=== PATIENT | female | born 1975 | race African-American/Black ===

== ENCOUNTER 2017-06-08 11:09 | Emergency (ER) | payer OTHER ==
[~2017-06-08] VITALS: Ht 165.1 cm; Wt 111.1 kg
[2017-06-08 11:10] VITALS: BP 120/101
[2017-06-08] MEDS ORDERED: Morphine Sulfate 4mg/ml Inj IVP ONE (11:45)
[2017-06-08] MEDS ORDERED: Ketorolac 30mg Inj IV ONE (11:45)
[2017-06-08 12:00] VITALS: BP 118/78
[2017-06-08 12:04] LABS: BASOPHILS % (AUTO) 1.4 % (0.0-2.0); EOSINOPHILS % (AUTO) 1.6 % (0.0-3.0); LYMPHOCYTES % (AUTO) 37.1 % (20.0-45.0); MEAN CORPUSCULAR HEMOGLOBIN 31.3 PG (27.0-31.0); MEAN CORPUSCULAR HGB CONC 33.3 G/DL (32.0-36.0); MEAN CORPUSCULAR VOLUME 94 FL (80-99); MEAN PLATELET VOLUME 7.6 FL (6.5-10.1); NEUTROPHILS % (AUTO) 48.9 % (45.0-75.0); PLATELET COUNT 195 K/UL (150-450); RED BLOOD COUNT 4.19 M/UL (4.20-5.40); RED CELL DISTRIBUTION WIDTH 11.8 % (11.6-14.8); WHITE BLOOD COUNT 5.4 K/UL (4.8-10.8)
[2017-06-08 12:11] LABS: PROTHROMBIN TIME 10.3 SEC (9.30-11.50)
[2017-06-08 12:14] LABS: ALANINE AMINOTRANSFERASE 16 U/L (12-78); ALBUMIN/GLOBULIN RATIO 1.3 (1.0-2.7); ANION GAP 6 mmol/L (5-15); ASPARTATE AMINO TRANSFERASE 12 U/L (15-37); CALCIUM 9.1 MG/DL (8.5-10.1); CARBON DIOXIDE 27 MMOL/L (21-32); CHLORIDE 106 MMOL/L (98-107); CREATININE 0.8 MG/DL (0.55-1.30); GLOMERULAR FILTRATION RATE > 60 mL/min (>60); SODIUM 139 MMOL/L (136-145); TOTAL PROTEIN 7.2 G/DL (6.4-8.2)
[2017-06-08] MEDS ORDERED: oxyCODONE HCL/Acetaminophen 5/325mg ORAL ONE (12:45)
[2017-06-08 13:00] VITALS: BP 122/67
[2017-06-08] MEDS ORDERED: Norco 5mg/325mg tab ORAL ONE (13:45)
[2017-06-08 14:00] VITALS: BP 116/72
--- NOTE | 2017-06-08 14:49 | Diagnostic Imaging Report ---
Indication: PAIN heavy vaginal bleeding with large blood clots Technique: Transabdominal and transvaginal images Comparison: None Findings: Uterus measures 13.3 cm length by 6.7 cm AP. The endometrium measures 10 mm thick. A few bright echoes are seen within the endometrium, but no suspicious findings. No intrauterine is demonstrated. 2 small hypoechoic presumed fibroids are demonstrated within the myometrium, largest measuring 13 mm. The right ovary measures 6.7 cm in length, demonstrates a 5.6 cm diameter cyst. Left ovary measures 3.5 cm in length. No adnexal mass otherwise. No free cul-de-sac fluid Impression: No intrauterine demonstrated. Per discussion with referring physician, this most likely represents spontaneous . Ectopic or very early not completely excludable, however, and correlation with serial beta-hCG is recommended, with followup sonography is indicated 5.6 cm right ovarian cyst, likely a corpus luteum cyst. Recommend followup sonography in 6-8 weeks to assure stability or resolution Nonspecific bright echoes within the endometrium No evidence of retained products of conception Small uterine fibroids
[2017-06-08 15:00] VITALS: BP 124/82
--- NOTE | 2017-06-08 15:42 | Emergency Room Report ---
History of Present Illness General Chief Complaint: Vaginal Source: Patient Present Illness HPI This patient presents with heavy vaginal bleeding and pelvic cramping. The patient states that 3 weeks ago she missed her menstrual period. She states she took a home past and the first one was positive. She took one again and it was negative. She assumed that she was entering menopause. She states that 5 days ago she started passing some discharge that looked like "tissue." She states that over the past 4 days she has had a normal period and tell last night when she developed severe cramping and bleeding. She states that this morning she had severe pain and then passed a piece of tissue that looked like around the ball that was larger than a golf ball. She states that she also has had heavy bleeding and suprapubic cramping. She denies fever or chills. She denies nausea or vomiting. She denies chest pain or shortness of breath. She has no other complaints. The patient is EAB 2. Allergies: Coded Allergies: No Known Allergies (Unverified , 06/08/17) Patient History Social History: Denies: smoking, alcohol use, drug use Last Menstrual Period: March/2017 Reviewed Nursing Documentation: PMH: Agreed, PSxH: Agreed Nursing Documentation-PMH Past Medical History: No Stated History Review of Systems All Other Systems: negative except mentioned in HPI Physical Exam Vital Signs Date Time Temp Pulse Resp B/P (MAP) Pulse Ox O2 Delivery O2 Flow Rate FiO2 06/08/17 11:10 97.6 107 17 120/101 99 Room Air Sp02 EP Interpretation: reviewed, normal General Appearance: no apparent distress, alert, GCS 15, non-toxic Head: normocephalic, atraumatic Eyes: bilateral eye normal inspection, bilateral eye PERRL ENT: hearing grossly normal, normal pharynx, no angioedema, normal voice Neck: full range of motion, supple/symm/no masses Respiratory: chest non-tender, lungs clear, normal breath sounds, speaking full sentences Cardiovascular #1: regular rate, rhythm, no edema Gastrointestinal: normal bowel sounds, soft, non-distended, no guarding, no rebound, tenderness - TTP Supra-pubic/pelvic. Rectal: deferred Musculoskeletal: back normal, gait/station normal, normal range of motion, non- tender Neurologic: alert, oriented x3, responsive, motor strength/tone normal, sensory intact, speech normal Psychiatric: judgement/insight normal, memory normal, mood/affect normal, no suicidal/homicidal ideation Skin: normal color, no rash, warm/dry, well hydrated Medical Decision Making Diagnostic Impression: Primary Impression: Spontaneous miscarriage ER Course This patient presents with heavy bleeding and cramping. She reports passing tissue. The patient's hCG is 500. The patient also reports a positive 3 weeks ago. Pelvic ultrasound shows no retained products and no intrauterine . There is no evidence of ectopic . This appears to be consistent with a spontaneous . The patient laboratory workup is benign to include CBC, CMP. The patient is not anemic. The vaginal bleeding has lightened to only spotting. I educated the patient that she'll need to followup with her primary care physician or a biotech production specialist to try and her hCG down to 0. The patient did not desire this . She is given close return precautions and followup instructions. Laboratory Tests Test 06/08/17 11:47 White Blood Count 5.4 K/UL (4.8-10.8) Red Blood Count 4.19 M/UL (4.20-5.40) L Hemoglobin 13.1 G/DL (12.0-16.0) Hematocrit 39.4 % (37.0-47.0) Mean Corpuscular Volume 94 FL (80-99) Mean Corpuscular Hemoglobin 31.3 PG (27.0-31.0) H Mean Corpuscular Hemoglobin Concent 33.3 G/DL (32.0-36.0) Red Cell Distribution Width 11.8 % (11.6-14.8) Platelet Count 195 K/UL (150-450) Mean Platelet Volume 7.6 FL (6.5-10.1) Neutrophils (%) (Auto) 48.9 % (45.0-75.0) Lymphocytes (%) (Auto) 37.1 % (20.0-45.0) Monocytes (%) (Auto) 11.0 % (1.0-10.0) H Eosinophils (%) (Auto) 1.6 % (0.0-3.0) Basophils (%) (Auto) 1.4 % (0.0-2.0) Prothrombin Time 10.3 SEC (9.30-11.50) Prothrombin Time INR 1.0 (0.9-1.1) PTT 30 SEC (23-33) Sodium Level 139 MMOL/L (136-145) Potassium Level 4.0 MMOL/L (3.5-5.1) Chloride Level 106 MMOL/L (98-107) Carbon Dioxide Level 27 MMOL/L (21-32) Anion Gap 6 mmol/L (5-15) Blood Urea Nitrogen 9 mg/dL (7-18) Creatinine 0.8 MG/DL (0.55-1.30) Estimate Glomerular Filtration Rate > 60 mL/min (>60) Glucose Level 93 MG/DL (74-106) Calcium Level 9.1 MG/DL (8.5-10.1) Total Bilirubin 0.4 MG/DL (0.2-1.0) Aspartate Amino Transferase (AST) 12 U/L (15-37) L Alanine Aminotransferase (ALT) 16 U/L (12-78) Alkaline Phosphatase 44 U/L (46-116) L Total Protein 7.2 G/DL (6.4-8.2) Albumin 4.0 G/DL (3.4-5.0) Globulin 3.2 g/dL Albumin/Globulin Ratio 1.3 (1.0-2.7) Human Chorionic Gonadotropin, Quant 518 mIU/mL (1-6) H CT/MRI/US Diagnostic Results CT/MRI/US Diagnostic Results : Imaging Test Ordered: Pelvic US Impression No IUP. No abnormal findings. See official report. Last Vital Signs Date Time Temp Pulse Resp B/P (MAP) Pulse Ox O2 Delivery O2 Flow Rate FiO2 06/08/17 13:00 60 19 122/67 100 Room Air 06/08/17 11:10 97.6 Status: improved Disposition: HOME, SELF-CARE Condition: Improved Referrals: [facility],REFERRING (PCP) RENE MATTHEW D.O. Jun 08, 2017 15:42
[2017-06-08] MEDS ORDERED: NORCO 5-325 TA1 EACH ORAL (16:07)
[2017-06-08] MEDS ORDERED: IBUPROFEN600 MG ORAL (16:07)
[2017-06-08 16:40] VITALS: BP 118/53
== END 2017-06-08 16:30 | disposition home or self-care (01) ==
LOC: EMR 12:20
DX: O03.9 Complete or unspecified spontaneous abortion without complication (principal); N93.9 Abnormal uterine and vaginal bleeding, unspecified
CPT/HCPCS: 36415; 76856; 80053; 84702; 85025; 85610; 85730; 86850; 86900; 86901; 96361; 96374; 96375; 99284; J1885; J2270; J2405